=== PATIENT | female | born 1990 | race Native Hawaiian/Other Pacific Islander ===

== ENCOUNTER 2017-09-22 20:01 | Emergency (ER) | payer BC, OTHER ==
[~2017-09-22] VITALS: Ht 152.4 cm; Wt 50.0 kg
[~2017-09-22 20:01] MED LIST: PROM25SU8 PO; Z.0.NO CURRENT MEDS
[2017-09-22 20:07] VITALS: BP 136/66; PULSE 95; RESP 16; TEMP 98.1; O2SAT 100
--- NOTE | 2017-09-22 20:16 | PD ---
HPI Chief Complaint: Injury Time Seen by Provider: 20:14 Travel History International Travel<30 days: Yes Contact w/Intl Traveler<30days: [place] Traveled to: [place] Traveled to known affect area: No History of Present Illness HPI Patient comes emerge department complaining of right ankle pain that began approximately 2 hours prior to arrival. Patient reports she was working out doing [employer] performing a rope climb when she fell about 4 feet "rolling" her right ankle causing pain. Patient describes pain as a aching throbbing pain in her lateral aspect of her right ankle without radiation. Pain is worse with trying to stand. Patient reports that she iced it 3 times prior to coming emergency department seem to help bring the swelling down. Denies any head injury, loss consciousness, or other injury. Denies . Severity mild. PFSH Past Medical History Medical History: Denies Significant Hx Diminished Hearing: No Tetanus Vaccination: < 5 Years ?: Not LMP: 09/08/2017 : 1 Past Surgical History Surgical History: No Previous Surgery Social History Alcohol Use: No Tobacco Use: No Substance Use: No Allergies-Medications (Allergen,Severity, Reaction): Coded Allergies: No Known Allergies (Unverified Adverse Reaction, Unknown, 09/22/17) Reported Meds & Prescriptions Reported Meds & Active Scripts Active Phenergan (Promethazine HCl) 25 Mg Tab 25 Mg PO Q6H FOR NAUSEA/VOMITING Reported No Current Meds (Miscellaneous Medication) [facility] – [place] Review of Systems Except as stated in HPI: all other systems reviewed are Neg Physical Exam Narrative GENERAL: Well-developed, well nourished, in no acute distress, and non-ill appearing. SKIN: Focused skin assessment warm and dry. HEAD: Atraumatic. Normocephalic. EYES: Pupils equal and round. EOMI. No scleral icterus. No injection or drainage. ENT: No nasal bleeding or discharge. Mucous membranes pink and moist. NECK: Trachea midline. Supple. No nuclear rigidity. CARDIOVASCULAR: Dorsal pulses 2+, intact, and equal bilaterally. Capillary refill less than 2 seconds. RESPIRATORY: No accessory muscle use. No respiratory distress. MUSCULOSKELETAL: No obvious deformities. No clubbing. No cyanosis. No edema. Full range of motion. Ankle: Neagative anterior draw and Khan test. Negative Mera's sign. No laxity noted with passive inversion and eversion of BL ankles. Negative squeeze test. Pulses equal BL distal to injury. Capillary refill less than 2 seconds distal to injury and equal BL. Sensation equal BL 1st web space. FROM of toes distal to injury and equal BL. NV intact distal to injury and equal BL. Dorsal pulses equal BL. Patient reports tenderness palpation over lateral aspect of right ankle. No crepitus. Minimal soft tissue swelling noted. No ecchymosis. NEUROLOGICAL: Awake and alert. No obvious cranial nerve deficits. Motor grossly within normal limits. Normal speech. PSYCHIATRIC: Appropriate mood and affect; insight and judgment normal. Data Data Last Documented VS Vital Signs Date Time Temp Pulse Resp B/P (MAP) Pulse Ox O2 Delivery O2 Flow Rate FiO2 09/22/17 20:12 Room Air 09/22/17 20:07 98.1 95 16 136/66 (89) 100 Orders Orders Ankle, Complete ([id number]) (09/22/17 ) Ed Discharge Order (09/22/17 20:45) Splint Or Brace Apply/Monitor (09/22/17 20:45) [employer] Request For Service (09/22/17 20:45) Brace Ankle Stirrup (09/22/17 ) [facility] Medical Decision Making Medical Screen Exam Complete: Yes Emergency Medical Condition: Yes Interpretation(s) X-ray of the right ankle reviewed by myself and Dr. Crystal shows no acute abnormalities. Radiologist to over read. Differential Diagnosis Fracture, sprain, contusion, dislocation Narrative Course There is no clinical evidence for fracture. There is no clinical evidence to suspect bony injury by exam. Radiographic examination revealed no fracture seen at this time. No obvious ligamental injury or internal derangement is noted at this time. The distal extremity appears neurovascularly intact, without evidence of neurovascular injury nor compartment syndrome. Tendon exam also was intact. The effected limb was splinted. The patient was discharged with sprain and splint care instructions and given warnings for vascular compromise. The patient is to follow up with Orthopedics. The patient agrees with plan. Patient in no obvious distress upon re-evaluation. All pertinent Radiology result(s) discussed with patient. Any questions/concerns in reference to patient diagnosis/condition discussed and clarified prior to patient's discharge. Reinforced sheer importance of close follow up with patient's primary physician or primary care clinic and/or orthopedic. Instructed patient to return to ED immediately, if symptoms return/worsen. Patient showed understanding of above instructions. Further instructions and recommendations were detailed in discharge paperwork. Patient ambulated without difficulty out of ED at discharge. Diagnosis Primary Impression: Right ankle sprain Qualified Codes: S93.401A - Sprain of unspecified ligament of right ankle, initial encounter Referrals: Edgar Saavedra MD Patient Instructions: Ankle Sprain (DC), Ankle Stirrup Splint (ED), Crutch Instructions (ED), General Instructions Additional Instructions: Follow-up with your primary care physician and/or orthopedic in 2-3 days for reevaluation. Use crutches as needed for comfort until reevaluated. Wear ankle stirrup splint for support as needed until reevaluated. Apply ice to affected area times prior as needed for pain. Use [id number] Tylenol and ibuprofen as needed for pain. Follow instructions on the packaging. Return to the emergency department if symptoms get worse. Disposition: 01 DISCHARGE HOME Condition: Stable Kvng Avila September 22, 2017 20:16
--- NOTE | 2017-09-22 21:35 | RADRPT ---
EXAM DATE/TIME: 09/22/2017 20:22 [facility] COMPARISON: No previous studies available for comparison. INDICATIONS : Pain in right ankle after hurting during workout. MEDICAL HISTORY : None. SURGICAL HISTORY : None. ENCOUNTER: Initial ACUITY: 1 day PAIN SCORE: 5/10 LOCATION: Right ankle FINDINGS: Three view exam was performed of the right ankle. The bony structures are in normal alignment. No e vidence of fracture, dislocation, or bony destruction. Mild lateral soft tissue swelling. The ankle mortise is intact. No radiopaque foreign bodies are seen. Bony mineralization is normal. CONCLUSION: Soft tissue swelling. No acute bony injury Arun Mojica MD on September 22, 2017 at 21:32 Board Certified Radiologist. This report was verified electronically.
== END 2017-09-22 21:08 | disposition home or self-care (01) ==
LOC: NEPK 20:01
DX: S93.401A Sprain of unspecified ligament of right ankle, initial encounter (principal); W17.89XA Other fall from one level to another, initial encounter; Y93.39 Activity, other involving climbing, rappelling and jumping off
CPT/HCPCS: 73610; 99283; E0113; L1906